=== PATIENT | female | born 2000 | race Caucasian/White ===

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

== ENCOUNTER 2020-11-10 16:31 | Emergency (ER) | payer MEDICAID, SELFPAY ==
[2020-11-10 16:42] VITALS: BP 130/84; PULSE 95; RESP 19; TEMP 37.1; O2SAT 98; BMI 27.3
[2020-11-10 16:57] LABS: UTC Influenza A Antigen Negative (Negative); UTC Influenza B Antigen Negative (Negative); UTC Strep Screen (Rapid) Positive (Negative)
--- NOTE | 2020-11-10 17:06 | HMH.EDUTC ---
[facility] [place] Clinical Impression: Strep throat Disposition: Home, Self-Care Condition on Discharge: Good Instructions: DI for Strep Throat, Strep Throat, Amoxicillin Additional Instructions: *Monitor Temp, Over the counter Motrin or Tylenol as directed/as needed Tylenol every 4 hours and Motrin every 6 hours (as long as your family doctor has told you that you can take it) for fever or pain. and straight to ER if unable to lower temp less than 101.0 after medication given *Warm salt water gargles may help to soothe the throat *Throat Lozenges *Warm fluids like tea with honey may help to soothe the throat *Sleep elevated *Humidifier/Vaporizer *If you did not take Penicillin shot or was unable to, start taking antibiotic immediately and make sure that you take it for the FULL length of time although you should start to feel better in 24-48 hours *change toothbrush and toothpaste 24-48 hours after starting to take antibiotics so you do not reinfect yourself Monitor Temp. Tylenol and/or Ibuprofen as needed. ER if fever is no less than 101 despite alternating Tylenol and Ibuprofen * Encourage fluids, water, Gatorade, powerade, pedialyte if /toddler/or child *Cold fluids, popsicles and ice cream may feel good on his throat Follow up IMMEDIATELY for new or worsening symptoms or no Noticeable improvement over the next 48-72 hours. 911 for difficulty breathing or swallowing Prescriptions: Amoxicillin/Potassium Clav [Augmentin 875-125 Tablet] 1 tab PO Q12H 10 Days #20 tab Transmission Status: Pending to [facility] Referrals: Provider,Referral, [Primary Care Provider] - As needed Time of Disposition: 17:11 Medical Decision Making - Mitchell Inquiry Pt receiving controlled substance: No Mitchell was queried for this patient: No Vital Signs: 11/10/20 16:42 Temperature 98.7 F Temperature Source Oral Pulse Rate [Right] 95 H Respiratory Rate 19 Blood Pressure [Right Arm] 130/84 Blood Pressure Mean [Right Arm] 99 Blood Pressure Source [Right Arm] Automatic Cuff Blood Pressure Position [Right Arm] Sitting 02 Sat by Pulse Oximetry 98 Oxygen Delivery Method Room Air - Lab Data Lab results reviewed: Yes: I reviewed the patient's lab results. Lab Results 11/10/20 16:36: Influenza Type A Ag Negative, Influenza Type B Ag Negative 11/10/20 16:36: Strep Scn Rapid Clinic Positive A [facility] [place] HPI - General Stated complaint: possible strep or flu Time Seen by Provider: 11/10/20 17:06 Mode of Arrival: Ambulatory Source of Information: Patient Limitations: No Limitations Description of Symptoms (Recalled from Triage Doc. by RN): pt c/o flu and strep symptoms since yesterday. fever, body aches, bilateral ear pain and sinus drainage. HEENT Symptoms (Recalled from RN notes): Yes (bilateral ear pain and sinus drainage) Resp Symptoms (Recalled from RN notes): No Skin Symptoms (Recalled from RN notes): No MS Symptoms (Recalled from RN notes): No Functional Status (Recalled from RN notes): body aches - History of Present Illness Provider Complaint: Patient state that she was recently around her sister that tested positive for Strep throat States that she started feeling bad yesterday States that she has been having body aches, chills, pain in both ears, sore throat and feeling pressure in her sinuses States that she came in today wanting to see if she had strep or flu State that she had a baby 4 weeks ago - Related Data Previous Rx's Medication Instructions Recorded promethazine 12.5 mg tablet 12.5 mg PO Q6H PRN #30 tab 09/02/18 azithromycin 1 gram oral packet 1 g PO DAILY #1 each 09/08/18 Amoxicillin/Potassium Clav 1 tab PO Q12H 10 Days #20 tab 11/10/20 [Augmentin 875-125 Tablet] Allergies Allergy/AdvReac Type Severity Reaction Status Date / Time No Known Allergies Allergy Verified 09/29/18 15:08 - Worker's Comp Is this a Worker's Comp case?: No [facility] History - Hepatitis A S
[2020-11-10 17:13] VITALS: BP 137/85; PULSE 87; RESP 18; TEMP 36.6
== END 2020-11-10 17:22 | disposition home or self-care (01) ==
PROVIDERS: Emergency Provider Nurse Practitioner
DX: J02.0 Streptococcal pharyngitis (principal)
CPT/HCPCS: 87804; 87880; 99202; G0463

== ENCOUNTER 2020-12-27 11:39 | Emergency (ER) | payer MEDICAID, SELFPAY ==
[2020-12-27 11:40] VITALS: BP 130/107; PULSE 76; RESP 18; TEMP 37; O2SAT 98; BMI 27.3
--- NOTE | 2020-12-27 12:11 | HMH.EDUTC ---
[facility] [place] Clinical Impression: URI (upper respiratory infection) Qualifiers: URI type: unspecified URI Qualified Code(s): J06.9 - Acute upper respiratory infection, unspecified Disposition: Home, Self-Care Condition on Discharge: Good Instructions: Sore Throat, DI for Nasal Congestion Additional Instructions: *Monitor Temp, Over the counter Motrin or Tylenol as directed/as needed Tylenol every 4 hours and Motrin every 6 hours (as long as your family doctor has told you that you can take it) for fever or pain. and straight to ER if unable to lower temp less than 101.0 after medication given *Warm salt water gargles may help to soothe the throat *Throat Lozenges *Warm fluids like tea with honey may help to soothe the throat *Sleep elevated *Humidifier/Vaporizer *Flonase 2 sprays in each nostril daily but be aware that it may take 2-3 days before you notice improvement Your throat swab was sent for culture. Those results are typically sent to your primary care. Be sure to follow up in 2-3 days with your family doctor/primary care physician if no improvement so they can review those result and treat if necessary. If you don?t have a primary care doctor, I recommend you get one but in the mean time, you will have to return to a walk in clinic Follow up IMMEDIATELY for new or worsening symptoms or no Noticeable improvement over the next 48-72 hours. 911 for difficulty breathing or swallowing Prescriptions: Fluticasone Propionate [Flonase 50mcg nasal spray 16gm] 1 spr NS DAILY #1 bottle Transmission Status: Pending to [facility] methylPREDNISolone [Medrol 4mg tab] 4 mg PO DIRECTED #21 tab Transmission Status: Pending to [facility] Azithromycin [Z-Abdiaziz 250mg Tab] 250 mg PO DIRECTED #6 tab Transmission Status: Pending to [facility] Referrals: Provider,Referral, [Primary Care Provider] - As needed Time of Disposition: 12:28 Medical Decision Making - Mitchell Inquiry Pt receiving controlled substance: No Mitchell was queried for this patient: No Vital Signs: 12/27/20 11:40 Temperature 98.6 F Temperature Source Oral Pulse Rate [Right Brachial] 76 Respiratory Rate 18 Blood Pressure [Right Arm] 130/107 H Blood Pressure Mean [Right Arm] 114 Blood Pressure Source [Right Arm] Automatic Cuff Blood Pressure Position [Right Arm] Sitting 02 Sat by Pulse Oximetry 98 Oxygen Delivery Method Room Air - Lab Data Lab Results 12/27/20 12:05: Strep Scn Rapid Clinic Negative Orders (Tests/Meds): ORDERS Category Date Time Status Strep Screen Confirmation Stat Micro 12/27/20 12:05 [place] [facility] [place] - General Stated complaint: sore throat,congested Time Seen by Provider: 12/27/20 12:11 Mode of Arrival: Ambulatory Source of Information: Patient Limitations: No Limitations Description of Symptoms (Recalled from Triage Doc. by RN): PATIENT C/O SORE THROAT, SWOLLEN TONSILS AND CONGESTION X 1 WEEK HEENT Symptoms (Recalled from RN notes): Yes Resp Symptoms (Recalled from RN notes): No Skin Symptoms (Recalled from RN notes): No MS Symptoms (Recalled from RN notes): No Functional Status (Recalled from RN notes): WNL - History of Present Illness Provider Complaint: Patient states that she hasnt felt well for about a week State that she has been having sore throat, swollen tonsils and nasal congestion for about week States that child has not been feeling well either with similar symptoms States that she has small infant at home and she was worried she may have strep throat - Related Data Previous Rx's Medication Instructions Recorded Azithromycin [Z-Abdiaziz 250mg Tab] 250 mg PO DIRECTED #6 tab 12/27/20 Fluticasone Propionate [Flonase 1 spr NS DAILY #1 bottle 12/27/20 50mcg nasal spray 16gm] methylPREDNISolone [Medrol 4mg 4 mg PO DIRECTED #21 tab 12/27/20 tab] Allergies Allergy/AdvReac Type Severity Reaction Status Date / Luis
[2020-12-27 12:19] LABS: UTC Strep Screen (Rapid) Negative (Negative)
[2020-12-27 12:32] VITALS: BP 130/107; PULSE 76; RESP 18; TEMP 37; O2SAT 98
== END 2020-12-27 12:35 | disposition home or self-care (01) ==
PROVIDERS: Emergency Provider Nurse Practitioner
DX: J06.9 Acute upper respiratory infection, unspecified (principal); F17.210 Nicotine dependence, cigarettes, uncomplicated
CPT/HCPCS: 87880; 99202; G0463

== ENCOUNTER 2021-03-04 13:08 | Emergency (ER) | payer MEDICAID, SELFPAY ==
[2021-03-04 15:45] VITALS: BP 126/57; PULSE 85; RESP 19; TEMP 36.9; O2SAT 98; BMI 26.6
[2021-03-04 15:58] VITALS: BP 126/57; PULSE 85; RESP 19; TEMP 36.6
--- NOTE | 2021-03-04 16:01 | HMH.EDUTC ---
[facility] [place] Disposition Clinical Impression: Exposure to COVID-19 virus, Viral syndrome Disposition: Home, Self-Care Condition on Discharge: Good Instructions: DI for Viral Syndrome, DI for COVID-19 (Suspected or Confirmed ), Preventing the Spread of Coronavirus Discharge Instructions Additional Instructions: Drink plenty of fluids. Take tylenol for pain or fever. Return if you begin to have difficulty breathing. Follow up with your regular doctor. GO TO THE ER FOR ANY WORSENING SYMPTOMS Quarantine until you know the results of your covid-19 test. If it is positive, the health department should call you and give you further instructions about your length of Quarantine and other things. Notify your school or workplace of your results and follow their instructions regarding return to work/school. Prescriptions: Brompheniramine/Pseudoephed/Dm [Bromfed Dm Cough Syrup] 5 ml PO Q6HP PRN #240 syrup PRN Reason: Cough Transmission Status: Received by [facility] Benzonatate [Tessalon Perle 100mg Cap] 100 mg PO TIDP PRN #30 cap PRN Reason: Cough Transmission Status: Received by [facility] Azithromycin [Z-Abdiaziz 250mg Tab*] 250 mg PO UD DOSE PK #6 tab Transmission Status: Received by [facility] Referrals: Provider,Referral, [Primary Care Provider] - Forms: Work/School Release Time of Disposition: 16:04 Medical Decision Making - Medical Records Medical records reviewed: No: I reviewed the patient's medical records. - Mitchell Inquiry Pt receiving controlled substance: No Vital Signs: 03/04/21 15:45 03/04/21 15:58 Temperature 98.4 F 98 F Temperature Source Oral Pulse Rate 85 Pulse Rate [Left] 85 Respiratory Rate 19 19 Blood Pressure 126/57 L Blood Pressure [Right Arm] 126/57 L Blood Pressure Mean [Right Arm] 80 02 Sat by Pulse Oximetry 98 - Lab Data Lab results reviewed: Yes: I reviewed the patient's lab results. Orders (Tests/Meds): ORDERS Category Date Time Status Covid-19 Nasal PCR ([facility]) Routine Lab 03/04/21 15:15 Received [facility] [place] HPI - General Stated complaint: cough, runny nose Time Seen by Provider: 03/04/21 16:02 Mode of Arrival: Ambulatory Source of Information: Patient Limitations: No Limitations Description of Symptoms (Recalled from Triage Doc. by RN): PT C/O A COUGH, RUNNY NOSE AND ENCARNACION HEENT Symptoms (Recalled from RN notes): Yes (RUNNY NOSE AND ENCARNACION) Resp Symptoms (Recalled from RN notes): Yes (COUGH) Skin Symptoms (Recalled from RN notes): No MS Symptoms (Recalled from RN notes): No Functional Status (Recalled from RN notes): NA - History of Present Illness Provider Complaint: She c/o sore throat, sinus pressure, cough and fever for the past 2 days. Both her children are sick with similar symptoms. - Related Data Previous Rx's Medication Instructions Recorded Azithromycin [Z-Abdiaziz 250mg Tab] 250 mg PO DIRECTED #6 tab 12/27/20 Fluticasone Propionate [Flonase 1 spr NS DAILY #1 bottle 12/27/20 50mcg nasal spray 16gm] methylPREDNISolone [Medrol 4mg 4 mg PO DIRECTED #21 tab 12/27/20 tab] Azithromycin [Z-Abdiaziz 250mg Tab*] 250 mg PO UD DOSE PK #6 tab 03/04/21 Benzonatate [Tessalon Perle 100mg 100 mg PO TIDP PRN #30 cap 03/04/21 Cap] Brompheniramine/Pseudoephed/Dm 5 ml PO Q6HP PRN #240 syrup 03/04/21 [Bromfed Dm Cough Syrup] Allergies Allergy/AdvReac Type Severity Reaction Status Date / Time No Known Allergies Allergy Verified 09/29/18 15:08 - Worker's Comp Is this a Worker's Comp case?: No [facility] History - Hepatitis A Screen Drug use history?: No High risk sexual behaviors?: No History of sexually transmitted infection?: No Currently employed?: No Childcare worker?: No Do you have indoor plumbing?: Yes Do you have electricity?: Yes Attestation statement:: This patient has been screened for Hepatitis A risk factors. I have reviewed the patient's past medical history: Yes M
== END 2021-03-04 16:11 | disposition home or self-care (01) ==
PROVIDERS: Emergency Provider Nurse Practitioner Family
DX: B34.9 Viral infection, unspecified (principal); Z20.822 Contact with and (suspected) exposure to COVID-19; F17.210 Nicotine dependence, cigarettes, uncomplicated
CPT/HCPCS: 99202; G0463; U0003

== ENCOUNTER 2022-01-22 16:49 | Emergency (ER) | payer MEDICAID, SELFPAY ==
[2022-01-22 17:25] VITALS: BP 129/76; PULSE 70; RESP 19; TEMP 37.2; O2SAT 99; BMI 23.1
[2022-01-22 17:45] LABS: Adenovirus,PCR Not Detected (NotDetected); Bordetella Pertussis Not Detected (NotDetected); Chlamydophila Pneumoniae, PCR Not Detected (NotDetected); Coronavirus 229E Not Detected (NotDetected); Coronavirus NL63 Not Detected (NotDetected); Coronavirus OC43 Not Detected (NotDetected); Coronovirus HKU1,PCR Not Detected (NotDetected); Human Metapneumovirus Not Detected (NotDetected); Influenza A, PCR Not Detected (NotDetected); Influenza AH1, 2009 Not Detected (NotDetected); Influenza AH1, PCR Not Detected (NotDetected); Influenza AH3,PCR Not Detected (NotDetected); Influenza B, PCR Not Detected (NotDetected); Mycoplasma Pneumoniae, PCR Not Detected (NotDetected); Parainfluenza 1, PCR Not Detected (NotDetected); Parainfluenza 2, PCR Not Detected (NotDetected); Parainfluenza 3, PCR Not Detected (NotDetected); Parainfluenza 4, PCR Not Detected (NotDetected); Respiratory Syncytial Virus Not Detected (NotDetected); Rhinovirus/Enterovirus Not Detected (NotDetected)
--- NOTE | 2022-01-22 17:53 | HMH.EDUTC ---
[facility] [place] Disposition Clinical Impression: Exposure to COVID-19 virus, Viral syndrome Disposition: Home, Self-Care Condition on Discharge: Good Instructions: DI for Fever (Symptom) -- Adult, DI for COVID-19 (Suspected or Confirmed ) Additional Instructions: *Monitor Temp, Over the counter Motrin or Tylenol as directed/as needed Tylenol every 4 hours and Motrin every 6 hours (as long as your family doctor has told you that you can take it) for fever or pain. and straight to ER if unable to lower temp less than 101.0 after medication given *Warm salt water gargles may help to soothe the throat *Throat Lozenges *Warm fluids like tea with honey may help to soothe the throat *Sleep elevated *Humidifier/Vaporizer Follow up IMMEDIATELY for new or worsening symptoms or no Noticeable improvement over the next 48-72 hours. 911 for difficulty breathing or swallowing You were tested for today for COVID19 your test result should be back in the next 24-48 hours, you may Check your results on the [facility] My Health Portal Make sure to take your Vitamins Vit. C Vit D and Zinc if you can take them Referrals: Chalino Morris MD [Primary Care Provider] - As needed Forms: Work/School Release Time of Disposition: 18:34 Medical Decision Making - Mitchell Inquiry Pt receiving controlled substance: No Mitchell was queried for this patient: No Vital Signs: 01/22/22 17:25 Temperature 98.9 F Temperature Source Oral Pulse Rate [Right Brachial] 70 Respiratory Rate 19 Blood Pressure [Right Arm] 129/76 Blood Pressure Mean [Right Arm] 93 Blood Pressure Source [Right Arm] Automatic Cuff Blood Pressure Position [Right Arm] Sitting 02 Sat by Pulse Oximetry 99 Oxygen Delivery Method Room Air - Lab Data Lab Results 01/22/22 18:07: Strep Scn Rapid Clinic Negative Orders (Tests/Meds): ORDERS Category Date Time Status Full Resp Panel w/COVID ([facility]) Routine Lab 01/22/22 17:26 Received Strep Screen Confirmation Stat Micro 01/22/22 18:07 Received [facility] [place] HPI - General Stated complaint: possible exposed, sore throat,ears,cough,runny nos Time Seen by Provider: 01/22/22 17:53 Mode of Arrival: Ambulatory Source of Information: Patient Limitations: No Limitations Description of Symptoms (Recalled from Triage Doc. by RN): PATIENT C/O FLU AND COVID SYMPTOMS X 2 DAYS HEENT Symptoms (Recalled from RN notes): Yes Resp Symptoms (Recalled from RN notes): No Skin Symptoms (Recalled from RN notes): No MS Symptoms (Recalled from RN notes): No Functional Status (Recalled from RN notes): WNL - History of Present Illness Provider Complaint: Patient states that she thinks she may have been exposed to COVID States that her childrens school had an outbreak and she was around them and her children was sick State that she is having sore throat, body aches, chills and feels feverish so today she came in to get tested - Related Data Previous Rx's Medication Instructions Recorded Azithromycin [Z-Abdiaziz 250mg Tab] 250 mg PO DIRECTED #6 tab 12/27/20 Fluticasone Propionate [Flonase 1 spr NS DAILY #1 bottle 12/27/20 50mcg nasal spray 16gm] methylPREDNISolone [Medrol 4mg 4 mg PO DIRECTED #21 tab 12/27/20 tab] Benzonatate [Tessalon Perle 100mg 100 mg PO TIDP PRN #30 cap 03/04/21 Cap] Brompheniramine/Pseudoephed/Dm 5 ml PO Q6HP PRN #240 syrup 03/04/21 [Bromfed Dm Cough Syrup] azithromycin 250 mg tablet 250 mg PO UD DOSE PK #6 tab 06/12/21 Allergies Allergy/AdvReac Type Severity Reaction Status Date / Time No Known Allergies Allergy Verified 06/12/21 13:59 - Worker's Comp Is this a Worker's Comp case?: No [facility] History - Hepatitis A Screen Attestation statement:: This patient has been screened for Hepatitis A risk factors. I have reviewed the patient's past medical history: Yes Medical History: Denies:: Cancer, Diabetes Mellitus Type 1, Diabetes Mellitus Type 2, Hypertension, MRSA Comment: none Other Surgeries: Ye
[2022-01-22 18:32] LABS: UTC Strep Screen (Rapid) Negative (Negative)
[2022-01-22 18:33] VITALS: BP 129/76; PULSE 70; RESP 19; TEMP 37.2; O2SAT 99
[2022-01-22 19:57] LABS: Coronavirus 19, PCR Detected (NotDetected)
--- NOTE | 2022-01-23 14:54 | PC.NURSE ---
Attempted to call pt with covid results. No answer
== END 2022-01-22 18:39 | disposition home or self-care (01) ==
PROVIDERS: Emergency Provider Nurse Practitioner; PCP Emergency Medicine
DX: U07.1 COVID-19 (principal)
CPT/HCPCS: 87581; 87632; 87798; 87880; 99212; C9803; G0463; U0003; U0005